=== PATIENT | female | born 2000 | race Caucasian/White ===

== ENCOUNTER 2020-04-29 18:37 | Emergency (ER) | payer BC, SELFPAY ==
--- NOTE | 2020-04-29 20:58 | RAD REPORT ---
EXAM DESCRIPTION: RAD - Ankle Right 3 View - 04/29/2020 8:03 pm CLINICAL HISTORY: Pain;Swelling COMPARISON: Ankle Right 3 View dated 06/08/2013 FINDINGS: Mild soft tissue swelling is seen along the lateral ankle. No acute fracture or dislocatio n seen.
--- NOTE | 2020-04-29 21:03 | RAD REPORT ---
EXAM DESCRIPTION: RAD - Foot Right 3 View - 04/29/2020 8:46 pm CLINICAL HISTORY: PAIN COMPARISON: No comparisons FINDINGS: No fracture or dislocation is seen.
--- NOTE | 2020-04-29 21:15 | ER ---
Nurse's Notes [facility] Name: Karla Ham Age: 20 yrs Sex: Female : 2000 Arrival Date: 04/29/2020 Time: 18:41 Bed 23 Private MD: Diagnosis: Pain in right ankle and joints of right foot Presentation: 04/29 19:24 Chief complaint: Patient states: Tripped and fell off 3rd step from the bottom of [facility] stairs on Tuesday. R ankle pain, swelling. Coronavirus screen: Client denies travel out of the [place] in the last 14 days. At this time, the client does not indicate any symptoms associated with coronavirus-19. Ebola Screen: Patient negative for fever greater than or equal to 101.5 degrees Fahrenheit, and additional compatible Ebola Virus Disease symptoms Patient denies exposure to infectious person. Patient denies travel to an Ebola-affected area in the 21 days before illness onset. No symptoms or risks identified at this time. Initial Sepsis Screen: Does the patient meet any 2 criteria? No. Patient's initial sepsis screen is negative. Does the patient have a suspected source of infection? No. Patient's initial sepsis screen is negative. Risk Assessment: Do you want to hurt yourself or someone else? Patient reports no desire to harm self or others. Onset of symptoms was April 29, 2020. 19:24 Method Of Arrival: Ambulatory ca1 19:24 Acuity: RAUL 4 ca1 ASSOCIATE CHIEF NURSE: 19:24 LMP 04/21/2020 ca1 Historical: - Allergies: 19:27 No Known Allergies; ca1 - Home Meds: 19:27 None [Active]; ca1 - PMHx: 19:27 None; ca1 - PSHx: 19:27 None; ca1 - Immunization history:: Adult Immunizations up to date. - Social history:: Smoking status: Patient denies any tobacco usage or history of. Screenin:08 Abuse screen: Denies threats or abuse. Denies injuries from another. Nutritional sg screening: No deficits noted. Tuberculosis screening: No symptoms or risk factors identified. Never had TB. Fall Risk None identified. Assessment: 19:50 Reassessment: Patient appears in no apparent distress at this time. Xray at bedside in sg exarm room 23 at this time. 20:07 General: Appears in no apparent distress. well groomed, well developed, well nourished, sg Behavior is calm, cooperative, appropriate for age. Pain: Complains of pain in right ankle Quality of pain is described as aching. Neuro: Level of Consciousness is awake, alert, obeys commands, Oriented to person, place, time, situation, Lamp Replacer are equal bilaterally Moves all extremities. Speech is normal, Facial symmetry appears normal, Pupils are PERRLA. Cardiovascular: Patient's skin is warm and dry. Chest pain is denied. Respiratory: Airway is patent Respiratory effort is even, unlabored, Respiratory pattern is regular, symmetrical. GI: No signs and/or symptoms were reported involving the gastrointestinal system. : No signs and/or symptoms were reported regarding the genitourinary system. EENT: No signs and/or symptoms were reported regarding the EENT system. Derm: Skin is pink, warm \T\ dry. Musculoskeletal: Circulation, motion, and sensation intact. Range of motion: intact in all extremities, Swelling present in right ankle. 20:31 Reassessment: xray at bedside for additional images at this time. sg Vital Signs: 19:24 BP 110 / 76; Pulse 72; Resp 15 S; Temp 97.2(TE); Pulse Ox 100% on R/A; Weight 104.33 kg ca1 (R); Height 5 ft. 8 in. (172.72 cm) (R); 21:00 BP 112 / 77; Pulse 77; Resp 17; Temp 97.2; Pulse Ox 100% on R/A; sg 19:24 Body Mass Index 34.97 (104.33 kg, 172.72 cm) ca1 ED Course: 18:41 Patient arrived in ED. mr 19:26 Triage completed. ca1 19:27 Arm band placed on right wrist. ca1 19:54 Khai Bhatti, LYNSEY is PHCP. pm1 19:54 Jatinder Calabrese MD is Attending Physician. pm1 19:59 Jeremy Hunter, ANTHONY is Primary Nurse. sg 20:03 Ankle Right 3 View XRAY In Process Unspecified. EDMS 20:11 Patient has correct armband on for positive identification. Bed in low position. Call sg light in reach. Side rails up X 1. Pulse ox on. NIBP on. Warm blanket given. Head of bed elevated. 20:46 Foot Right 3 View XRAY In Process Unspecified. EDMS 21:00 No provider procedures requiring assistance completed. Patient did not have IV access sg during this emergency room visit. Crutch training done. Pepe wrap to right leg and right ankle Orthoglass splint: Posterior short lleg splint applied on right leg. Administered Medications: No medications were administered Outcome: 21:14 Discharge ordered by . pm1 21:14 Discharged to pt splint verified by Khai STEVEN prior to dc to home sg 21:17 Discharged to home ambulatory, with crutches, with family. sg 21:17 Condition: good 21:17 Discharge instructions given to patient, Instructed on discharge instructions, follow up and referral plans. Demonstrated understanding of instructions, follow-up care, crutch walking. 21:18 Patient left the ED. sg Signatures: Dispatcher [employer] EDMS Jeremy Hunter, ANTHONY RN korina Livia Medrano Khai, COLOR CONTROL OPERATOR COLOR CONTROL OPERATOR pm1 Raisa Dodd RN RN ca1 Corrections: (The following items were deleted from the chart) 19:30 19:24 Pulse 72bpm; Resp 15bpm; Spontaneous; Pulse Ox 100% RA; Temp 97.2F Temporal; ca1 104.33 kg Reported; Height 5 ft. 8 in. Reported; BMI: 34.9; ca1 20:12 20:07 Pain: Complains of pain in left lateral ankle Quality of pain is described as sg aching, sg 20:12 20:07 Musculoskeletal: Circulation, motion, and sensation intact. Range of motion: sg intact in all extremities, Swelling present in left lateral ankle sg
--- NOTE | 2020-04-29 21:15 | EDPHYS ---
Physician Documentation [facility] Name: Karla Ham Age: 20 yrs Sex: Female : 2000 Arrival Date: 04/29/2020 Time: 18:41 Bed 23 Private MD: ED Physician Jatinder Calabrese HPI: 04/29 20:21 This 20 yrs old Female presents to ER via Ambulatory with complaints of Ankle pm1 Injury. 20:21 The patient presents with pain, swelling. The complaints affect the right ankle. Onset: pm1 The symptoms/episode began/occurred last night. Context: The problem was sustained at home, resulted from the patient tripping, down 3 stair steps, The mechanism of injury is unknown. Patient was drinking The patient can partially bear weight on the affected extremity. the patient is able to ambulate, with mild difficulty. Associated signs and symptoms: Pertinent negatives: Headache, head injury, neck pain. Modifying factors: The symptoms are alleviated by nothing, the symptoms are aggravated by nothing. Severity of symptoms: in the emergency department the symptoms are actually worse, patient did not recall any pain at injury but woke up with right foot and ankle pain. The patient has not experienced similar symptoms in the past. The patient has not recently seen a physician. NEGATIVE CUTTER: 19:24 LMP 04/21/2020 ca1 Historical: - Allergies: 19:27 No Known Allergies; ca1 - Home Meds: 19:27 None [Active]; ca1 - PMHx: 19:27 None; ca1 - PSHx: 19:27 None; ca1 - Immunization history:: Adult Immunizations up to date. - Social history:: Smoking status: Patient denies any tobacco usage or history of. ROS: 20:21 Constitutional: Negative for fever, chills, and weight loss, Cardiovascular: Negative pm1 for chest pain, palpitations, and edema, Respiratory: Negative for shortness of breath, cough, wheezing, and pleuritic chest pain, Abdomen/GI: Negative for abdominal pain, nausea, vomiting, diarrhea, and constipation, Back: Negative for injury and pain. 20:21 Skin: Negative for injury, rash, and discoloration, Neuro: Negative for headache, weakness, numbness, tingling, and seizure. 20:21 MS/extremity: Positive for pain, swelling, tenderness, of the right foot and right ankle, Negative for decreased range of motion, deformity. Exam: 20:21 Constitutional: This is a well developed, well nourished patient who is awake, alert, pm1 and in no acute distress. Head/Face: Normocephalic, atraumatic. 20:21 Back: No spinal tenderness. No costovertebral tenderness. Full range of motion. Skin: Warm, dry with normal turgor. Normal color with no rashes, no lesions, and no evidence of cellulitis. 20:21 Cardiovascular: Exam negative for acute changes, Rate: normal, Rhythm: regular, Pulses: no pulse deficits are appreciated. 20:21 Respiratory: Exam negative for acute changes, respiratory distress, shortness of breath. 20:21 Musculoskeletal/extremity: Extremities: grossly normal except: noted in the right ankle and dorsum of right foot: swelling, tenderness. 20:21 Neuro: Exam negative for acute changes, Orientation: is normal, Mentation: is normal, Motor: is normal, moves all fours. Vital Signs: 19:24 BP 110 / 76; Pulse 72; Resp 15 S; Temp 97.2(TE); Pulse Ox 100% on R/A; Weight 104.33 kg ca1 (R); Height 5 ft. 8 in. (172.72 cm) (R); 21:00 BP 112 / 77; Pulse 77; Resp 17; Temp 97.2; Pulse Ox 100% on R/A; sg 19:24 Body Mass Index 34.97 (104.33 kg, 172.72 cm) ca1 Procedures: 21:18 Splinting: Splint applied to right ankle and right foot using Orthoglass splint, pm1 applied by nurse. Examined by me, post splint application: neurovascular intact, 2+ distal pulses palpable, brisk capillary refill noted, Patient tolerated well. MDM: 19:55 Patient medically screened. soy 21:13 Data reviewed: vital signs. Data interpreted: Pulse oximetry: on room air is 100 %. pm1 Interpretation: normal. Counseling: I had a detailed discussion with the patient and/or guardian regarding: the historical points, exam findings, and any diagnostic results supporting the discharge/admit diagnosis, radiology results, the need for outpatient follow up, to return to the emergency department if symptoms worsen or persist or if there are any questions or concerns that arise at home. 04/29 19:30 Order name: Ankle Right 3 View XRAY; Complete Time: 21:11 ca1 04/29 20:21 Order name: Foot Right 3 View XRAY; Complete Time: 21:11 pm1 04/29 20:22 Order name: Crutches; Complete Time: 21:16 pm1 04/29 20:22 Order name: Posterior Orthoglass Ankle Splint; Complete Time: 21:16 pm1 Administered Medications: No medications were administered Disposition: 04/30 16:41 Co-signature as Attending Physician, Jatinder Calabrese MD I agree with the assessment and soy plan of care. Disposition: 04/29/20 21:14 Discharged to Home. Impression: Pain in right ankle and joints of right foot. - Condition is Stable. - Discharge Instructions: Ankle Sprain, Cast or Splint Care, Adult, Crutch Use, Foot Sprain. - Prescriptions for Diclofenac Sodium 75 mg Oral Tablet, Delayed Release (E.C.) - take 1 tablet by ORAL route 2 times per day As needed; 30 tablet. - Medication Reconciliation Form, Thank You Letter, Antibiotic Education, Prescription Opioid Use form. - Follow up: Emergency Department; When: As needed; Reason: Worsening of condition. Follow up: Private Physician; When: 2 - 3 days; Reason: Recheck today's complaints, Continuance of care, Re-evaluation by your physician. - Problem is new. - Symptoms have improved. Signatures: Dispatcher [employer] EDJeremy Milian RN RN Jatinder Cox MD MD cha Marinas, Patrick, SOLE FILLER SOLE FILLER pm1 Raisa Dodd RN RN ca1 Corrections: (The following items were deleted from the chart) 04/29 21:18 21:14 04/29/2020 21:14 Discharged to Home. Impression: Pain in right ankle and joints sg of right foot. Condition is Stable. Forms are Medication Reconciliation Form, Thank You Letter, Antibiotic Education, Prescription Opioid Use. Follow up: Emergency Department; When: As needed; Reason: Worsening of condition. Follow up: Private Physician; When: 2 - 3 days; Reason: Recheck today's complaints, Continuance of care, Re-evaluation by your physician. Problem is new. Symptoms have improved. pm1
[2020-05-01 23:35] VITALS: BP 110/76; TEMP 97.2; O2SAT 100
== END 2020-04-29 21:18 | disposition home or self-care (01) ==
LOC: ER 18:37
PROC: 2W3QX1Z Immobilization of Right Lower Leg using Splint (ICD-10-PCS; principal; 2020-04-29)
DX: M25.571 Pain in right ankle and joints of right foot (principal); W10.9XXA Fall (on) (from) unspecified stairs and steps, initial encounter; Y93.9 Activity, unspecified; Y92.9 Unspecified place or not applicable
CPT/HCPCS: 99284